=== PATIENT | male | born 1960 | race Caucasian/White ===

== ENCOUNTER 2023-08-05 11:55 | Day surgery (SDC) | payer MEDICARE ==
[~2023-08-05 11:55] MED LIST: Lactated Ringer's 1,000 ML IV ONE; propofoL 50 ML IV ONE
[2023-08-05] MEDS ORDERED: CARBAMAZEPINE200 M7 PO (12:22)
[2023-08-05] MEDS ORDERED: KLOR-CON 1010 ME9 PO (12:22)
[2023-08-05] MEDS ORDERED: STIOLTO RESPIMAT4 G1 IH (12:22)
[2023-08-05] MEDS ORDERED: CARVEDILOL6.25 MG PO (12:22)
[2023-08-05] MEDS ORDERED: ALLEGRA HIVES180 MG PO (12:23)
[2023-08-05] MEDS ORDERED: CREON DR 24,001 EACH PO (12:23)
[2023-08-05] MEDS ORDERED: REMERON30 M9 PO (12:23)
[2023-08-05] MEDS ORDERED: MUCUS RELIEF (12:24)
[2023-08-05] MEDS ORDERED: FLUT.05NI (12:24)
[2023-08-05] MEDS ORDERED: ATORVASTATIN CA20 MG PO (12:24)
[2023-08-05] MEDS ORDERED: NICORETTE4 M1 BC (12:25)
[2023-08-05] MEDS ORDERED: SEMGLEE (Y100 UNIT/2 SQ (12:25)
[2023-08-05] MEDS ORDERED: QUETIAPINE FUMA5012 PO (12:25)
[2023-08-05] MEDS ORDERED: PREGABALIN75 MG PO (12:25)
[2023-08-05] MEDS ORDERED: OMEP20ER (12:25)
[2023-08-05] MEDS ORDERED: METFORMIN HCL500 M3 PO (12:26)
[2023-08-05] MEDS ORDERED: JARDIANCE25 MG PO (12:26)
[2023-08-05] MEDS ORDERED: TRULICITY4.5 MG/0.5 SQ (12:26)
[2023-08-05] MEDS ORDERED: Lactated Ringer's 1,000 ML IV ONE (13:35)
== END 2023-08-05 14:52 | disposition home or self-care (01) ==
LOC: ORSCSDS 11:55
PROVIDERS: Internal Medicine Gastroenterology
PROC: 0DJ08ZZ Inspection of Upper Intestinal Tract, Via Natural or Artificial Opening Endoscopic (ICD-10-PCS; principal; 2023-08-05 13:30)
DX: K70.30 Alcoholic cirrhosis of liver without ascites (principal); E11.9 Type 2 diabetes mellitus without complications; B19.21 Unspecified viral hepatitis C with hepatic coma; F17.210 Nicotine dependence, cigarettes, uncomplicated; Z79.84 Long term (current) use of oral hypoglycemic drugs; Z79.85 Long-term (current) use of injectable non-insulin antidiabetic drugs; Z79.899 Other long term (current) drug therapy
CPT/HCPCS: 82947; J2704; J7120